=== PATIENT | male | born 1980 | race Caucasian/White ===

== ENCOUNTER 2017-10-23 00:26 | Emergency (ER) | payer BC ==
[2017-10-23 00:41] VITALS: O2SAT 96
[2017-10-23] MEDS ORDERED: Hydromorphone 1 mg/ml Ampule ONE (00:49)
[2017-10-23] MEDS ORDERED: Phenergan 25 MG INJ IV ONE (00:49)
[2017-10-23] MEDS ORDERED: Phenergan 25 MG INJ ONE (00:49)
[2017-10-23] MEDS ORDERED: Hydromorphone 1 mg/ml Ampule IV ONE (00:49)
[2017-10-23] MEDS ORDERED: Sodium Chloride 0.9% 1000 ML 1,000 ML IV STA (00:49)
[2017-10-23] MEDS ORDERED: Sodium Chloride 0.9% 1000 ML 1,000 ML ONE (00:49)
--- NOTE | 2017-10-23 00:51 | ERPHSYRPT ---
- History of Present Illness Time Seen by Provider: 10/23/17 00:46 Historian: patient, family Exam Limitations: no limitations Patient Subjective Stated Complaint: pt co severe sudden onset rlq abdominal pain radiating into his right lower back; pain down into his groin; states feels like his stomach is swelling up. Triage Nursing Assessment: pt a&o x3; skin p, w, & d; appears in severe pain; unable to sit or lay in bed; ambulated to room per self; family at bedside. Physician History: The patient is a 37-year-old male with his complaining of a sudden onset one hour ago of right sided abdominal pain with radiation around to his right flank and down into his right testicle. He states he's never had anything like this before. He was slightly nauseated. He is very uncomfortable and can neither stand nor lie down to relieve the pain. He denies vomiting or diarrhea. He has chronic back and neck pain. He denies having any surgeries. His past medical history is significant for back and neck pain. He also has anxiety. Timing/Duration: hour(s) (1), constant, sudden Activities at Onset: none Quality: sharpness, stabbing Abdominal Pain Onset Location: RLQ, flank (right) Pain Radiation: groin (right) Severity of Pain-Max: severe Severity of Pain-Current: severe Modifying Factors: Improves With: nothing Associated Symptoms: nausea, No vomiting Previous symptoms: no prior history Allergies/Adverse Reactions: No Known Drug Allergies Allergy (Verified 10/23/17 00:41) Home Medications: Alprazolam 1 mg [Xanax 1 mg] 1 mg PO DAILY 10/23/17 [History] Hydrocodone/Acetaminophen [Hydrocodone-Acetamin 10-325 mg] 10 mg PO DAILY [History] Hx Tetanus, Diphtheria Vaccination/Date Given: Yes Hx Influenza Vaccination/Date Given: No Hx Pneumococcal Vaccination/Date Given: No Immunizations Up to Date: No - Review of Systems Constitutional: No Fever, No Chills Eyes: No Symptoms Ears, Nose, & Throat: No Symptoms Respiratory: No Cough, No Dyspnea Cardiac: No Chest Pain, No Edema, No Syncope Abdominal/Gastrointestinal: Abdominal Pain, Nausea, No Vomiting, No Diarrhea Genitourinary Symptoms: No Dysuria Musculoskeletal: No Back Pain, No Neck Pain Skin: No Rash Neurological: No Dizziness, No Focal Weakness, No Sensory Changes Psychological: No Symptoms Endocrine: No Symptoms Hematologic/Lymphatic: No Symptoms Immunological/Allergic: No Symptoms All Other Systems: Reviewed and Negative - Past Medical History Pertinent Past Medical History: No - Past Surgical History Past Surgical History: Yes Neuro Surgical History: Neurological Surgery Male Surgical History: Vasectomy - Social History Smoking Status: Never smoker Exposure to second hand smoke: No Drug Use: none Patient Lives Alone: No - Nursing Vital Signs Nursing Vital Signs: Initial Vital Signs Temperature 97.8 F 10/23/17 00:32 Pulse Rate 74 10/23/17 00:32 Respiratory Rate 22 10/23/17 00:32 Blood Pressure 148/87 10/23/17 00:32 O2 Sat by Pulse Oximetry 96 10/23/17 00:32 Pain Scale Pain Intensity 10 - Physical Exam General Appearance: moderate distress Eye Exam: PERRL/EOMI, eyes nml inspection Ears, Nose, Throat Exam: normal ENT inspection, pharynx normal, moist mucous membranes Neck Exam: normal inspection, non-tender, supple, full range of motion Respiratory Exam: normal breath sounds, lungs clear, No respiratory distress Cardiovascular Exam: regular rate/rhythm, normal heart sounds Gastrointestinal/Abdomen Exam: tenderness (RLQ), No pulsatile mass Rectal Exam: not done Back Exam: normal inspection, normal range of motion, No CVA tenderness, No vertebral tenderness Extremity Exam: normal inspection, normal range of motion, pelvis stable Neurologic Exam: alert, oriented x 3, cooperative, normal mood/affect, nml cerebellar function, sensation nml, No motor deficits Skin Exam: normal color, warm, dry SpO2 Interpretation: normal SpO2: 96 Oxygen Delivery: Room Air - CT Exams Abdomen/Pelvis CT Interpretation: Tele-radiologist Report (Per Dr Moy), Other (tiny 2 mm stone in posterior urinary bladder.) Ordered Tests: Active Orders 24 hr Category Date Time Status Clean Catch Urine Specimen STAT Care 10/23/17 00:49 Active IV Insertion STAT Care 10/23/17 00:49 Active ABDOMEN AND PELVIS W/0 CONTRAS [CT] Stat Exams 10/23/17 00:50 Taken AMYLASE Stat Lab 10/23/17 01:00 Completed CBC W DIFF Stat Lab 10/23/17 01:00 Completed CMP Stat Lab 10/23/17 01:00 Completed LIPASE Stat Lab 10/23/17 01:00 Completed Lactic Acid Stat Lab 10/23/17 00:49 Ordered UA W/RFX UR CULTURE Stat Lab 10/23/17 00:50 Uncollected Urine Triage Profile Stat Lab 10/23/17 00:50 Uncollected Medication Summary Discontinued Medications Generic Name Dose Route Start Last Admin Trade Name Freq PRN Reason Stop Dose Admin Hydromorphone HCl 1 mg 10/23/17 00:49 10/23/17 00:54 Hydromorphone 1 Mg/Ml Ampule IV 10/23/17 00:50 1 mg STAT ONE Administration Hydromorphone HCl Confirm 10/23/17 00:49 Hydromorphone 1 Mg/Ml Ampule Administered 10/23/17 00:50 Dose 1 mg .ROUTE .STK-MED ONE Sodium Chloride 1,000 mls @ 999 mls/hr 10/23/17 00:49 10/23/17 00:54 Sodium Chloride 0.9% 1000 Ml IV 10/23/17 01:49 999 mls/hr .Q1H1M STA Administration Sodium Chloride Confirm 10/23/17 00:49 Sodium Chloride 0.9% 1000 Ml Administered 10/23/17 00:50 Dose 1,000 mls @ ud .ROUTE .STK-MED ONE Promethazine HCl 25 mg 10/23/17 00:49 10/23/17 01:00 Phenergan 25 Mg Inj IV 10/23/17 00:50 25 mg STAT ONE Administration Promethazine HCl Confirm 10/23/17 00:49 Phenergan 25 Mg Inj Administered 10/23/17 00:50 Dose 25 mg .ROUTE .STK-MED ONE Lab/Rad Data: Laboratory Result Diagrams 10/23/17 01:00 10/23/17 01:00 Laboratory Results 10/23/17 10/23/17 Range/Units 01:00 01:00 WBC 7.6 (4.0-10.5) K/mm3 RBC 5.18 (4.1-5.6) M/mm3 Hgb 14.9 (12.5-18.0) gm/dl Hct 42.3 (42-50) % MCV 81.7 (78-100) fl MCH 28.8 (26-32) pg MCHC 35.2 (32-36) g/dl RDW 13.3 (11.5-14.0) % Plt Count 218 (150-450) K/mm3 MPV 11.4 H (6-9.5) fl Gran % 47.9 (36.0-66.0) % Eos # (Auto) 0.23 (0-0.5) Absolute Lymphs (auto) 2.73 (1.0-4.6) Absolute Monos (auto) 0.96 (0.0-1.3) Lymphocytes % 36.0 (24.0-44.0) % Monocytes % 12.7 H (0.0-12.0) % Eosinophils % 3.0 (0.00-5.0) % Basophils % 0.4 (0.0-0.4) % Absolute Granulocytes 3.63 (1.4-6.9) Basophils # 0.03 (0-0.4) Sodium 142 (137-145) mmol/L Potassium 4.0 (3.5-5.1) mmol/L Chloride 106 (98-107) mmol/L Carbon Dioxide 22 (22-30) mmol/L Anion Gap 17.9 H (5-15) MEQ/L BUN 17 (9-20) mg/dL Creatinine 1.11 (0.66-1.25) mg/dL Estimated GFR > 60.0 ML/MIN Glucose 138 H (74-106) mg/dL Calcium 9.2 (8.4-10.2) mg/dL Total Bilirubin 0.40 (0.2-1.3) mg/dL AST 28 (17-59) U/L ALT 31 (0-50) U/L Alkaline Phosphatase 75 (38-126) U/L Serum Total Protein 7.2 (6.3-8.2) g/dL Albumin 4.5 (3.5-5.0) g/dL Amylase 93 (30-110) U/L Lipase 158 (23-300) U/L - Progress Progress: improved Counseled pt/family regarding: lab results, diagnosis, rad results - Departure Time of Disposition: 02:09 Departure Disposition: Home Clinical Impression: Calculus in bladder Condition: Stable Critical Care Time: No Additional Instructions: The CT scan of your abdomen and pelvis shows that you passed a small 2 mm stone and it is now in your bladder. You were given Dilaudid 1 mg, Phenergan 25 mg, and fluids by IV in the ER. Strain the urine with a screen to collect the stone. Follow-up with your primary medical doctor for evaluation of the collected stone.
[2017-10-23 01:07] LABS: BASOPHIL % 0.4 % (0.0-0.4); Basophil (Absolute #) 0.03 (0-0.4); Eosinophil (Absolute #) 0.23 (0-0.5); Granulocyte Absolute (ANC) 3.63 (1.4-6.9); Granulocytes % 47.9 % (36.0-66.0); Hematocrit 42.3 % (42-50); Hemoglobin 14.9 gm/dl (12.5-18.0); Lymphocyte (Absolute #) 2.73 (1.0-4.6); Mean Cell Volume 81.7 fl (78-100); Mean Corpuscular Hemoglobin 28.8 pg (26-32); Mean Corpuscular Hgb Concent. 35.2 g/dl (32-36); Mean Platelet Volume 11.4 fl (6-9.5); Monocyte (Absolute #) 0.96 (0.0-1.3); Monocytes % 12.7 % (0.0-12.0); Platelet Count 218 K/mm3 (150-450); Red Blood Count 5.18 M/mm3 (4.1-5.6); Red Cell Distribution Width 13.3 % (11.5-14.0); White Blood Count 7.6 K/mm3 (4.0-10.5)
[2017-10-23 01:33] LABS: ALBUMIN 4.5 g/dL (3.5-5.0); ALKALINE PHOSPHATASE 75 U/L (38-126); AMYLASE 93 U/L (30-110); ANION GAP 17.9 MEQ/L (5-15); BLOOD UREA NITROGEN 17 mg/dL (9-20); CHLORIDE 106 mmol/L (98-107); Calcium 9.2 mg/dL (8.4-10.2); Carbon Dioxide 22 mmol/L (22-30); Creatinine 1 1.11 mg/dL (0.66-1.25); Glucose 138 mg/dL (74-106); LIPASE 158 U/L (23-300); SGOT/AST 28 U/L (17-59); SGPT/ALT 31 U/L (0-50); SODIUM 142 mmol/L (137-145); Total Protein 7.2 g/dL (6.3-8.2)
[2017-10-23 02:32] VITALS: BP 128/80; PULSE 72
--- NOTE | 2017-10-23 08:54 | XRAY ---
Indication: Right lower quadrant pain. Multiple contiguous axial images obtained through the abdomen and pelvis without contrast as ordered. Comparison: None Lung bases demonstrates mild bibasilar dependent atelectasis. No infiltrate or effusion. Heart is not enlarged. Study slightly degraded by respiration artifact. Stomach is distended with food/fluid. Noncontrasted stomach and bowel loops appear nonobstructed. Normal appendix. No free fluid/air. Urinary bladder demonstrates tiny punctate midline calculus in the dependent portion. Remaining liver, gallbladder, pancreas, spleen, adrenal glands, kidneys, ureters, and bladder appear unremarkable for noncontrast exam. Minimal aortoiliac calcifications without AAA. Osseous structures intact with mild multilevel spinal degenerative changes. No ventral or inguinal hernias. Impression: 1. Respiration artifact. 2. Tiny punctate urinary bladder calculus without hydronephrosis or hydroureter. 3. Remaining CT abdomen/pelvis without contrast exam is negative. Comment: Preliminary interpretation was made by [facility]. No discrepancy. CTDI 23.51
== END 2017-10-23 02:32 | disposition home or self-care (01) ==
LOC: ED 00:26
DX: N21.0 Calculus in bladder (principal); F41.9 Anxiety disorder, unspecified
CPT/HCPCS: 36000; 36415; 74176; 80053; 82150; 83605; 83690; 85025; 96360; 96374; 96375; 99284; J1170; J2550